=== PATIENT | female | born 1980 | race Caucasian/White ===

== ENCOUNTER 2020-05-09 18:20 | Inpatient (IN) | payer OTHER, SELFPAY ==
[~2020-05-09] VITALS: Ht 170.2 cm; Wt 62.6 kg
--- NOTE | 2020-05-09 18:20 | NUR ---
Patient BIBA BLS, transferred to bed 6. RN evaluating patient at bedside.
[2020-05-09 18:24] VITALS: BP 149/71
--- NOTE | 2020-05-09 18:30 | NUR ---
UPON FIRST ASSESSMENT PT IS UNCOOPERATIVE AND WONT ANSWER QUESTIONS. CONTINUES TO YELL. FAMILY CALLED 911. HELLEN FROM HOME C/O OVERDOSE ON ATIVAN AND IBUPROFEN-UNKNOWN DOSAGES, AND DRINKING WINE-UNKNOWN AMOUNT. PT ON 5150 HOLD UPON ARRIVAL TO ER, TOLD POLICE THAT SHE "WANTED TO END IT ALL". PT WONT ADMIT TO SUICIDAL ATTEMPT. PMH- UNKNOWN [address] PT IN GOWN AND BELONGINGS REMOVED. 1-1 SITTER
--- NOTE | 2020-05-09 18:52 | NUR ---
PERFORMED EKG WITH ABBY VARMA BEDSIDE
--- NOTE | 2020-05-09 18:57 | NUR ---
SPOKE WITH EDGAR FROM POSION CONTROL STATES IF OVERDOSE IS WITHIN THE HOUR RECOMENDS ADMINISTERING 50G CHARCOAL, IF OVERDOSE IS LONGER THAN 1 HOUR THEN OBSERVE FOR VS AND MENTAL CHANES. RECOMMENDS DRAWING LABS, LIVER PANEL, AND BLOOD ALCOHOL. CAN GIVE IV FLUIDS. RECOMMENDS RE-DRAWING LABS AT 4 HRS AND OBSERVING FOR A TOTAL TIME OF 6 HRS.
[2020-05-09] MEDS ORDERED: NACL 0.9% 1,000 ML IV ONE (19:00)
[2020-05-09] MEDS ORDERED: HALOPERIDOL IM 5 MG/ML VIAL ONE (19:16)
[2020-05-09] MEDS ORDERED: HALOPERIDOL IM 5 MG/ML VIAL IM ONE (19:20)
--- NOTE | 2020-05-09 19:23 | NUR ---
RECEIVED REPORT FROM ABBY VAMRA
--- NOTE | 2020-05-09 19:32 | NUR ---
ATTEMPTED TO CALL PT'S PER PT'S REQUEST. [phone] SHARATH, NO ANSWER, LEFT MESSAGE FORM HIM TO CALL BACK.
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
--- NOTE | 2020-05-09 19:45 | NUR ---
PT REMAINS ON SUICIDE PRECAUTIONS AND CHECKS Q 15 MINUTES
[2020-05-09 19:47] LABS: BASOPHILS # (AUTO) 0.1 K/uL (0.00-0.22); BASOPHILS % (AUTO) 1.1 % (0.0-2.0); EOSINOPHILS % (AUTO) 0.2 % (0.0-4.0); HEMATOCRIT 45.7 % (36-48); HEMOGLOBIN 15.3 g/dL (12.0-16.0); LYMPHOCYTES # (AUTO) 3.5 K/uL (2.5-16.5); LYMPHOCYTES % (AUTO) 45.1 % (20.5-51.1); MEAN CORPUSCULAR HEMOGLOBIN 33 pg (27-31); MEAN CORPUSCULAR HGB CONC 34 g/dL (33-37); MEAN CORPUSCULAR VOLUME 97.1 fL (80-94); MONOCYTES # (AUTO) 0.7 K/uL (0.8-1.0); MONOCYTES % (AUTO) 8.6 % (1.7-9.3); NEUTROPHILS # (AUTO) 3.5 K/uL (1.8-7.7); PLATELET COUNT (AUTO) 259 K/uL (140-450); RED BLOOD CELL COUNT(AUTO) 4.71 MIL/uL (4.20-5.40); WHITE BLOOD COUNT (AUTO) 7.8 K/uL (4.8-10.8)
[2020-05-09 20:07] LABS: BARBITURATE, URINE NEGATIVE ng/ml (NEG <=200); BENZODIAZEPINE, URINE POSITIVE ng/mL (NEG <=200); CANNABINOID, URINE NEGATIVE ng/mL (NEG <=50); COCAINE, URINE NEGATIVE ng/mL (NEG <=300); OPIATE, URINE NEGATIVE ng/mL (NEG <=2000); PHENCYCLIDINE SCREEN,URINE NEGATIVE ng/mL (NEG <=25)
--- NOTE | 2020-05-09 20:10 | NUR ---
PATIENT'S GOWN AND BED LINENS CHANGED, DUE TO BED BEING WET FROM THE IV DRAINING AFTER SHE PULLED OUT THE IV FOR THE SECOND TIME.
--- NOTE | 2020-05-09 20:19 | NUR ---
PT REQUESTING ATIVAN, ADVISED PT SHE WAS JUST MEDICATED WITH HALDOL AND UNABLE TO GIVEN ATIVAN AT THIS. REPOSITIONED FOR COMFORT.
[2020-05-09 20:20] LABS: ANION GAP 23.3 (8-16); CARBON DIOXIDE 17.8 mmol/L (21-32); CHLORIDE 104 mmol/L (98-107); CREATININE 0.6 mg/dL (0.6-1.3); GFR ARICAN-AMERICAN 141 mL/min (>90); GLUCOSE 127 mg/dL (74-106); POTASSIUM 3.1 mmol/L (3.5-5.1); SODIUM SERUM 142 mmol/L (136-145); TOTAL BILIRUBIN 0.6 mg/dL (0.0-1.0); UREA NITROGEN, BLOOD 8 mg/dL (7-18)
[2020-05-09 20:21] LABS: ALBUMIN 4.2 g/dL (3.4-5.0); ASPARTATE AMINOTRANSFERASE 38 U/L (15-37); SALICYLATE < 2.8 mg/dL (2.8-20.0)
[2020-05-09 20:23] LABS: ACETAMINOPHEN 45.7 ug/ml (10-30)
--- NOTE | 2020-05-09 21:07 | NUR ---
PT SLEEPING AT THIS TIME, RESPIRATIONS REGULAR, EVEN, AND UNLABORED. PT CONTINUES TO BE MONITORED Q 15 MINS
--- NOTE | 2020-05-09 22:26 | NUR ---
SPOKE TO HARMONY AT POISON CONTROL FOR UPDATE OF PT'S LABS AND V/S. WAS ADVISED OF ELEVATED ACETAMEN. LEVEL. WAS TOLD PT NEED TO START ATETADOTE LOADING DOSE 150MG/KG FOR 1 HR, 50MG/KG X 4 HRS, AND 100MG/KG X 16 HRS. ER AWARE. GAVE MD PHONE NUMBER TO POISON CONTROL.
[2020-05-09] MEDS ORDERED: ACETYLCYSTEINE IV ONE ×3 (22:30)
[2020-05-09] MEDS ORDERED: DEXTROSE 5% IV ONE ×3 (22:30)
--- NOTE | 2020-05-09 22:49 | NUR ---
PT SPEAKING TO PSYCHIATRIST VIA TELEMEDICINE
--- NOTE | 2020-05-09 22:59 | NUR ---
PT REQUESTING SANDWICH AND DRINK.
[2020-05-09] MEDS ORDERED: POTASSIUM CHLORIDE 10 MEQ TABER PO ONE (23:05)
[2020-05-09] MEDS ORDERED: ACETYLCYSTEINE IV 6000 MG/30 ML VIAL IV ONE (23:48)
--- NOTE | 2020-05-09 23:50 | NUR ---
PT REMAINS ON 5150 FOR DTS AFTER SPEAKING WITH PSYCHIATRIST ON TELEPSYCH. PT ADVISED THAT SHE REMAINS ON A 5150 WHICH IS A HOLD X 72 HRS.
[2020-05-10] MEDS ORDERED: LORazepam 2 MG/ML VIAL IVP ONE (00:20)
--- NOTE | 2020-05-10 00:40 | NUR ---
PT STATES "I WANT TO KNOW WHAT THE FUCK IS GOING ON, IF I'M ON A HOLD JUST TELL THE DOCTOR TO COME AND TELL ME THAT, OR IS HE TOO FUCKING BUSY WITH ALL THESE PATIENTS THAT HE DOESNT HAVE" REMINDED PATIENT THAT LANGUAGE IS UNACCEPTABLE AND WILL NOT BE TOLERATED. ED ATTENDING MADE AWARE.
--- NOTE | 2020-05-10 00:53 | NUR ---
COVERING FOR PRIMARY NURSE WHILE ON LUNCH BREAK . PT PROVIDED WATER FOR COMFORT. PT
--- NOTE | 2020-05-10 01:21 | NUR ---
PT AMBULATED TO RESTROOM W/ STEADY GAIT. BATHROOM DOOR UNLOCKED AND SITTER OUTSIDE DOOR.
[2020-05-10] MEDS ORDERED: ACETYLCYSTEINE IV 6000 MG/30 ML VIAL IV ONE (01:50)
--- NOTE | 2020-05-10 02:04 | NUR ---
PT REQESTING MORE ATIVAN, 2MG. ADVISED SHE WILL NOT BE RECEIVING ANY MORE MEDS AT THIS TIME. PT REQUESTING HER PURSE, TOLD HER SHE IS NOT ALLOWED TO HAVE HER BELONGINGS WHILE BEING ON A HOLD. PT REQUESTING TO SPEAK WITH MD. I HAVE EXPLAINED TO PT NUMEROUS TIMES THAT SHE IS ON A 5150 HOLD WHICH MEANS SHE WILL BE HELD AT THE HOSPITAL OR TRANSFERRED TO A PSYCH FACILITY ONCE HER MEDS FINISH INFUSING FOR HER ELEVATED TYLENOL LEVELS. PT VERBALIZED UNDERSTANDING BUT CONTINUES TO STES SHE IS ANXIOUS AND UNABLE TO REST OR SLEEP. PT REMAINS ON BEDSIDE MONITOR.
--- NOTE | 2020-05-10 02:49 | NUR ---
PT CONTINUES TO REMAIN ON 15 MIN CHECKS AND BEDSIDE MONITOR
--- NOTE | 2020-05-10 04:14 | NUR ---
PT UP AND AMBULATED TO RESTROOM WITH STEADY GAIT. PT REQUESTED ANOTHER SANDWICH AND JUICES. Q 15 MIN CHECKS CONTINUE.
--- NOTE | 2020-05-10 04:37 | NUR ---
PT IS CONTINUOUSLY DISCONNECTING AND PULLING HER LEADS, WILL NOT KEEP HER ARM STRAIGHT FOR THE IV. KEEPS INSISTING TO BE TRANSFERRED TO [facility] OR [facility]. ADVISED AGAIN SHE IS ON A 5150 AND THEY DO NOT HAVE A PSYCH UNIT AND WILL NOT ACCEPT HER. PT STILL ASKING TO SPEAK TO ER MD TO MAKE ARRANGEMENTS TO TRANSFER HER TO EITHER FACILITY. REPOSITIONED IN BED REATTACHED LEADS AND B/P CUFF AGAIN AND ASKED PT TO KEEP ARM STRAIGHT
--- NOTE | 2020-05-10 05:09 | NUR ---
NEW IV STARTED DUE TO PT CONTINUOUSLY BENDING HER ARM AND IMPEDING IV FLOW. NEW IV SITE TO RIGHT FOREARM. PT CONTINUES ASKING FOR ATIVAN, ADVISED ER SAID NO.
--- NOTE | 2020-05-10 05:20 | NUR ---
PT UP TO THE RESTROOM, AMBULATED WITH STEADY GAIT
--- NOTE | 2020-05-10 05:40 | NUR ---
PT UP TO RESTROOM AGAIN. PT C/O DIARRHEA, AWARE, NO NEW ORDERS AT THIS TIME.
[2020-05-10] MEDS ORDERED: LORA-476 PO (05:55)
[2020-05-10] MEDS ORDERED: TOPI50TA PO (05:55)
[2020-05-10] MEDS ORDERED: TRAZ150T36 PO (05:55)
--- NOTE | 2020-05-10 06:50 | NUR ---
PT UP TO RESTROOM AGAIN, STEADY GAIT.
--- NOTE | 2020-05-10 06:58 | NUR ---
PT CONCERNED SHE WILL NOT BE GETTING HER REGULARLY SCHEDULED MEDS TODAY. LET MD BHATTI KNOW PT TAKES TOPOMAX 50 MG QAM AND ATIVAN 2MG QAM AND NIGHT MEDS TRAZADONE 150MG QHS AND ATIVAN 2 MG QHS.
--- NOTE | 2020-05-10 07:20 | NUR ---
REPORT GIVEN TO PERRI VARMA
--- NOTE | 2020-05-10 07:28 | NUR ---
PT RESTING IN BED, SIDE RAIL X1
--- NOTE | 2020-05-10 07:43 | NUR ---
COVID SWAB DONE ; SENT TO LAB
[2020-05-10] MEDS ORDERED: ACETYLCYSTEINE IV SCH (09:00)
[2020-05-10] MEDS ORDERED: DEXTROSE 5% IV SCH (09:00)
--- NOTE | 2020-05-10 09:05 | NUR ---
PATIENT HAS BEEN SCREENED AND CATEGORIZED LOW NUTRITION RISK. PATIENT WILL BE SEEN WITHIN 7 DAYS OF ADMISSION. 05/16/[address]
[2020-05-10 09:35] VITALS: BP 155/95
--- NOTE | 2020-05-10 09:35 | NUR ---
Patient will be admitted to care of [facility]. Admited to [facility]. Will go to room 109A. Belongings list completed. Report to YAHAIRA VARMA.
[2020-05-10] MEDS ORDERED: HYDROcodone/APAP 5/325 MG 1 TAB TAB PO PRN (10:50)
[2020-05-10] MEDS ORDERED: SODIUM PHOSPHATE 118 ML ENEM RC PRN (10:50)
[2020-05-10] MEDS ORDERED: ZOLPIDEM 5 MG TAB PO PRN (10:50)
[2020-05-10] MEDS ORDERED: guaiFENesin DM 200/20 MG-10 ML 10 ML UDC PO PRN (10:50)
[2020-05-10] MEDS ORDERED: diphenhydrAMINE 50 MG/ML VIAL IVP PRN (10:50)
[2020-05-10] MEDS ORDERED: POTASSIUM CHLORIDE 10 MEQ TABER PO PRN (10:50)
[2020-05-10] MEDS ORDERED: CLONIDINE HYDROCHLORIDE 0.1 MG TAB PO PRN (10:50)
[2020-05-10] MEDS ORDERED: LORazepam 1 MG TAB PO PRN (10:50)
[2020-05-10] MEDS ORDERED: ACETAMINOPHEN 325 MG TAB PO PRN (10:50)
[2020-05-10] MEDS ORDERED: DOCUSATE SODIUM 250 MG GELCAP PO PRN (10:50)
[2020-05-10] MEDS ORDERED: ONDANSETRON 4 MG/2 ML VIAL IVP PRN (10:50)
[2020-05-10] MEDS ORDERED: ALBUTEROL 0.083% 2.5 MG/3 ML NEBU INH PRN (10:50)
[2020-05-10] MEDS ORDERED: ALUMINUM HYD/MAG/SIMETHICONE 30 ML UDC PO PRN (10:50)
[2020-05-10] MEDS ORDERED: bisacodyL 10 MG SUPP RC PRN (10:50)
[2020-05-10] MEDS ORDERED: MAG SULF 2000 MG/WATER PREMIX 50 ML IV PRN (10:50)
[2020-05-10] MEDS ORDERED: MORPHINE SULFATE 2 MG/ML SYR IVP PRN (10:50)
[2020-05-10] MEDS ORDERED: MAGNESIUM OXIDE 400 MG TAB PO PRN (10:50)
[2020-05-10] MEDS ORDERED: ACETAMINOPHEN 650 MG SUPP RC PRN (10:50)
[2020-05-10] MEDS ORDERED: IPRATROPIUM 0.02% 0.5 MG/2.5 ML NEBU INH PRN (10:50)
[2020-05-10] MEDS ORDERED: TOPIRAMATE 25 MG TAB PO SCH (10:58)
--- NOTE | 2020-05-10 11:25 | NUR ---
POISON CONTROL CALLED TO VERIFY LABS. PER POISON CONTROL, OBTAIN LABS 1 HOUR PRIOR TO ACETALCYSTEINE TODAY. SO LAB WILL BE TAKEN AT 2300 LATER TONIGHT. WILL ORDER LABS PER DR. FARRELL. WILL CONTINUE TO MONITOR.
--- NOTE | 2020-05-10 13:24 | NUR ---
MEDICAID BILLING CLERK NOTE: Patient's Orientation Unable To Assess Information Provided By PATIENT Comments MIKY MET PATIENT AT BEDSIDE TO VERIFY DEMOGRAPHICS. Suppository Molding Machine Operator, Realtionship and Phone Number SHARATH ROWLAND [phone] Healthcare Power of Quality Control Expert No Does Patient Have a POLST No Identifying Problems Mental Health Is A Social Work Consult Needed No Mandate Report Filed No Explanation Of Identifying Problems PATIENT IS A 40-YEAR-OLD FEMALE ADMITTED FOR 5150. PATIENT DENIES PMHX. SW MET WITH PATIENT TO DISCUSS HOW SHE WAS HOSPITALIZED. PATIENT STATED THAT SHE HAD TAKEN 11-12 TYLENOL PM WITH ALCOHOL AND OTHER MEDICATION. PATIENT STATED SHE TAKES TAPAMAX, ATIVAN, AND TRAZADONE. PATIENT REPORTS HAVING DIAGNOSIS OF PTSD, BIPOLAR DISORDER, PANIC DISORDER. PATIENT REPORTS DAILY ALCOHOL USE BUT DENIES SUBSTANCE ABUSE. PATIENT STATED THAT SHE WAS INTERESTED IN MENTAL HEALTH RESOURCES. MIKY PROVIDED MENTAL HEALTH RESOURCES AND SCHEDULED APPOINTMENT AT [facility] FOR 05/16/2020. Admitted From Home Pre-Admission Level Of Functioning Status Independent/Ambulatory Prior Resources/Services Used In Last 12 Months No Prior Resources Used Prior DME No Prior DME Used Living Situation Lives W/Significant Other House Patient Had Caregiver No Home Support No Caregiver Issues Financial Issues No Known Financial Issue Factors/Needs Psych Placement/Referral Explanation And Or Other Factors Affecting/Possible DC Needs PENDING PSYCHIATRIC CONSULT, PATIENT WILL BE DISCHARGED TO A PSYCHIATRIC FACILITY. Pt/Rep Participated In Discharge Plan Yes Patient/Family Agress With Discharge Plan Yes Discharge Plan Comments TENTATIVE DISCHARGE PLAN IS FOR PATIENT TO BE DISCHARGED TO PSYCHIATRIC FACILITY/ DC Plan Status Initiated
--- NOTE | 2020-05-10 14:28 | NUR ---
DC PLANNING: MIKY FAXED CLINICALS AND 5150 TO [facility] [phone]. Addendum: 05/11/20 at 4736 by Rickey HYLTON MIKY CONTACTED ART FROM [facility] [phone]. PER ART, PATIENT'S CLINICALS AND 5150 WAS NOT RECEIVED. MIKY RE-FAXED CLINICALS AND 5150 TO [phone]. MIKY FOLLOWED UP WITH ART TO SEE IF IT WAS RECEIVED. Addendum: 05/11/20 at 9713 by Rickey HYLTON MIKY WAS CONTACTED BY EBER FROM [facility]. EBER REQUESTED COVID TESTING RESULTS TO BE FAXED TO [phone]. MIKY FAXED COVID TEST AND WILL AWAIT TO HEAR FROM EBER. Addendum: 05/11/20 at 1329 by Rickey HYLTON EBER CONTACTED WITH ROOM NUMBER [id number] UNDER ACCEPTING PHYSICIAN DR. ORDONEZ. MIKY ARRANGED TRANSPORTATION WITH JOSUE FROM [facility] [phone] FOR 1330. KOJO VIGIL WAS NOTIFIED. Addendum: 05/11/20 at 1331 by Rickey HYLTON MIKY PROVIDED AUTH TO JOSUE FOR TRANSPORTATION FROM IE: [id number] Addendum: 05/11/20 at 1334 by Rickey Tabor SS EBER PROVIDED PHONE NUMBER [phone] FOR TRANSPORTATION. CORRECTION: TRANSPORTATION WILL BE FOR 1530 THROUGH [facility].
[2020-05-10] MEDS ORDERED: LORazepam 2 MG/ML VIAL IVP SCH (15:24)
[2020-05-10 16:00] VITALS: BP 154/92
--- NOTE | 2020-05-10 19:15 | NUR ---
TRANSFER OF CARE TO MALARIOLOGIST. NO SIGNS OF DISTRESS. VS STABLE
--- NOTE | 2020-05-10 19:16 | NUR ---
RECD. RESTING IN BED, AWAKE, A/OX4. RESPIRATION EVEN AND UNLABORED. IV OF ACETADONE 6,300 MG. IN D5 W INFUSING AT 64.46 ML/HR, RIGHT FOREARM G22. DENIES INTENTION OF HURTING SELF, ONLY FEELING VERY ANXIOUS. PLAN OF CARE FOR THE SHIFT DISCUSSED. VERBALIZED UNDERSTANDING. DENIES PAIN 0/10.
[2020-05-10 20:00] VITALS: BP 137/107
--- NOTE | 2020-05-10 20:15 | NUR ---
SPOKE WITH BY PHONE.
[2020-05-10] MEDS: LORazepam 2 MG/ML VIAL IM/IVP PRN (20:32)
--- NOTE | 2020-05-10 20:32 | NUR ---
ATIVAN 1 MG. IVP GIVEN BY NURSE COMPRESSOR STATION ENGINEER
--- NOTE | 2020-05-10 21:30 | NUR ---
SLEEPING COMFORTABLY IN BED.
--- NOTE | 2020-05-10 22:00 | NUR ---
Patient's Plan of Care was discussed and reviewed with ENTRY TABLE OPERATOR: DIDIER FORD
[2020-05-10 23:17] LABS: ALBUMIN 3.5 g/dL (3.4-5.0); ANION GAP 15.5 (8-16); ASPARTATE AMINOTRANSFERASE 54 U/L (15-37); CARBON DIOXIDE 21.1 mmol/L (21-32); CHLORIDE 102 mmol/L (98-107); CREATININE 0.8 mg/dL (0.6-1.3); GFR ARICAN-AMERICAN 101 mL/min (>90); GLUCOSE 118 mg/dL (74-106); POTASSIUM 3.6 mmol/L (3.5-5.1); SODIUM SERUM 135 mmol/L (136-145); TOTAL BILIRUBIN 0.8 mg/dL (0.0-1.0); UREA NITROGEN, BLOOD 7 mg/dL (7-18)
--- NOTE | 2020-05-10 23:30 | NUR ---
RECEIVED PT FROM AM SHIFT. PT SEEN AND ASSESSED. PT ON ROOM AIR WITH SPO2 OF 98%. PT IS IN NO APPARENT RESPIRATORY DISTRESS AT THIS TIME. PRN TX NOT INDICATED AT THIS TIME. WILL CONTINUE TO MONITOR PT.
--- NOTE | 2020-05-10 23:35 | NUR ---
AWAKE IN BED, INQUIRED WHEN IS HER NEXT ATIVAN DUE. NOT YET DUE, INSTEAD REQUESTED FOR PAIN MEDICATION FOR HER BACK PAIN.
[2020-05-10] MEDS: HYDROcodone/APAP 5/325 MG 1 TAB TAB PO PRN (23:39)
[2020-05-11] VITALS: BP 154/88
--- NOTE | 2020-05-11 | NUR ---
IV INFILTRATED, NEW IV LINE INSERTED BY KOJO CORRALES AT THE LEFT WRIST G24.
[2020-05-11 00:03] LABS: ACETAMINOPHEN < 0.5 ug/ml (10-30)
[2020-05-11] MEDS: LORazepam 2 MG/ML VIAL IM/IVP PRN ×3 (00:38→14:38)
--- NOTE | 2020-05-11 00:38 | NUR ---
WITH ANXIETY, MEDICATED WITH ATIVAN 1 MG IVP BY KOJO CORRALES.
--- NOTE | 2020-05-11 01:38 | NUR ---
NO ANXIETY NOTED, SLEEPING COMFORTABLY IN BED.
--- NOTE | 2020-05-11 03:30 | NUR ---
COMFORTABLE IN BED, SLEEPING ON HER RIGHT SIDE. 1:1 SITTER NEAR DOOR MONITORING PATIENT.
--- NOTE | 2020-05-11 05:50 | NUR ---
INFORMED POISON CONTROL STAFF GEREMIAS, PATIENT TYLENOL LEVEL - LESS 0.5, BUT AST INCREASED FROM 38 TO 54. ADVISED TO GIVE ANOTHER BAG OF ACETADOTE AT 64.469 ML/HR, TO BE COMPUTED SAME THE LAST BAG GIVEN, 100 MG/KG X 16 HOURS AND DO ANOTHER AST LEVEL TEST ONE HOUR BEFORE BAG FINISH INFUSING.
--- NOTE | 2020-05-11 06:40 | NUR ---
INFORMED DR. FARRELL REGARDING RECOMMENDATION OF POISON CONTROL TO GIVE ANOTHER BAG OF ACETADOTE BUT STATED SHE IS FINE.
--- NOTE | 2020-05-11 07:00 | NUR ---
CONDITION REMAIN STABLE. WILL ENDORSE TO AM SHIFT NURSE FOR CONTINUITY OF CARE.
--- NOTE | 2020-05-11 07:20 | NUR ---
RECEIVED REPORT FROM NIGHT NURSE FOR CONTINUITY OF CARE, PT IS STABLE, NO SIGNS OF DISTRESS NOTED, RESPIRATIONS ARE EVEN AND UNLABORED, 1:1 SITTER AT DOOR, PT HAS RIGHT FA 22G SALINE LOCK, ALL NEEDS MET, WILL CONTINUE TO MONITOR
[2020-05-11 08:00] VITALS: BP 140/87
[2020-05-11] MEDS: HYDROcodone/APAP 5/325 MG 1 TAB TAB PO PRN ×2 (08:19→12:51)
--- NOTE | 2020-05-11 08:25 | NUR ---
ADMINISTERED SCHEDULED MEDICATION AND NORCO FOR BACK PAIN OF 8/10, THROBBING, ACH, MEDICATION EDUCATION GIVEN, PT VERBALIZED UNDERSTANDING, PT TOLERATED MEDICATION WELL, ICE PACK GIVEN TO PT TO PUT ON LOWER BACK, 1:1 SITTER AT DOOR WATCHING PT, PT IS STABLE, NO SIGNS OF DISTRESS NOTED
--- NOTE | 2020-05-11 08:49 | NUR ---
SPOKE WITH DR. HERNÁNDEZ ON THE PHONE AND NOTIFIED WITH THE CONSULT, DOCTOR BETTY STATED HE WILL COME TO SEE PT TODAY. GABY ASSIGNED MADE AWARE.
[2020-05-11] MEDS ORDERED: TOPIRAMATE 25 MG TAB PO SCH (09:00)
--- NOTE | 2020-05-11 09:10 | NUR ---
[facility] has received packet. Will start looking for placement.
--- NOTE | 2020-05-11 09:23 | NUR ---
Packet referred to the following facilities: [facility]
--- NOTE | 2020-05-11 10:19 | NUR ---
ADMINISTERED ATIVAN FOR ANXIETY, MEDICATION EDUCATION GIVEN, PT VERBALIZED UNDERSTANDING, PT TOLERATED WELL, PT IS STABLE, 1:1 SITTER AT DOOR
--- NOTE | 2020-05-11 12:53 | NUR ---
ADMINISTERED NORCO FOR BACK PAIN OF 05/16, MEDICATION EDUCATION GIVEN, PT VERBALIZED UNDERSTANDING, PT TOLERATED WELL, ICE PACK PROVIDED, 1:1 SITTER OUTSIDE THE ROOM
--- NOTE | 2020-05-11 14:41 | NUR ---
ADMINISTERED ATIVAN FOR ANXIETY, MEDICATION EDUCATION GIVEN, PT TOLERATED WELL, PT IS STABLE, 1:1 SITTER BY ROOM
--- NOTE | 2020-05-11 15:00 | NUR ---
CALLED [facility] AND GAVE REPORT TO RANDY THAT PT WOULD BE TRANSFERRED TO [facility], INFORMED NURSE OF PT'S MEDICATION AND WHEN 5150 END, FAMILY AWARE PT WILL BE TRANSFERRING.
--- NOTE | 2020-05-11 15:06 | NUR ---
DC PLANNING: PT IS REQUESTING TO TALK TO CM , I TALKED TO PATIENT AT THE BED SIDE VERBALIZING HER CONCERN AND ISSUES, TO GO FAR AWAY AND ALSO WORRIED ABOUT HER WORK. I EXPLAINED THE NEED TO BE IN THE PSYCH UNIT FOR TREATMENT WHICH IS RECOMMENDED BY THE PSYCHIATRIST AND FOR HER WORK ABLE TO GET A PAPERWORK FOR THE HOSPITAL STAY. PT VERBALIZED UNDERSTANDING AND AGREED TO GO TO PSYCH FACILITY. CM TO FOLLOW
--- NOTE | 2020-05-11 16:05 | NUR ---
PT TRANSFERRED TO [facility] IN [place], IV REMOVED, PT TRANSFERED BY [facility], PT IS STABLE,
== END 2020-05-11 16:10 | DRG 812 ==
LOC: MED 18:20 → MTU 05-10 08:26 → EDBEDREQ 05-10 08:43
PROVIDERS: ADMIT Internal Medicine Pulmonary Disease; ATTEND Internal Medicine Pulmonary Disease
DX: T45.0X2A Poisoning by antiallergic and antiemetic drugs, intentional self-harm, initial encounter (principal); T42.4X2A Poisoning by benzodiazepines, intentional self-harm, initial encounter; T39.1X2A Poisoning by 4-Aminophenol derivatives, intentional self-harm, initial encounter; Y92.89 Other specified places as the place of occurrence of the external cause; F32.9 Major depressive disorder, single episode, unspecified; F41.9 Anxiety disorder, unspecified; Z20.828 Contact with and (suspected) exposure to other viral communicable diseases; T51.0X2A Toxic effect of ethanol, intentional self-harm, initial encounter; G93.41 Metabolic encephalopathy
CPT/HCPCS: 36415; 80053; 80305; 81025; 85025; 87081; 93005; 96361; 96365; 96366; 96375; 99285; G0480; G0482; J0132; J1630; J2060; J7060; U0003-CS

== ENCOUNTER 2021-02-11 13:18 | Emergency (ER) | payer OTHER, SELFPAY ==
[~2021-02-11] VITALS: Ht 175.3 cm; Wt 56.7 kg
[2021-02-11 13:18] VITALS: BP 141/100
[~2021-02-11 13:18] MED LIST: LORA-476 PO; TOPI50TA PO; TRAZ150T36 PO
--- NOTE | 2021-02-11 13:18 | NUR ---
Patient BIBA BLS, transferred to bed 7. RN evaluating the patient at bedside.
--- NOTE | 2021-02-11 14:44 | NUR ---
Call 211 pt requesting crisis intervention help, leave message, instructed pt to ff up and to call back 211 again.
[2021-02-11 16:18] VITALS: BP 141/100
== END 2021-02-11 16:00 | disposition home or self-care (01) ==
LOC: MED 13:18
DX: F10.129 Alcohol abuse with intoxication, unspecified (principal); Y90.9 Presence of alcohol in blood, level not specified
CPT/HCPCS: 81025; 99283

== ENCOUNTER 2021-02-28 16:20 | Emergency (ER) | payer OTHER, SELFPAY ==
[~2021-02-28] VITALS: Ht 175.3 cm; Wt 56.7 kg
--- NOTE | 2021-02-28 16:22 | NUR ---
Patient BIBA to bed 7 at this time.
[2021-02-28 16:27] VITALS: BP 152/103
--- NOTE | 2021-02-28 16:36 | NUR ---
DR SONG AT BEDSIDE EXAMINING PATIENT
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
[2021-02-28 17:09] VITALS: BP 152/103
--- NOTE | 2021-02-28 17:10 | NUR ---
Patient discharged with v/s stable. Written and verbal after care instructions given and explained. Patient verbalized understanding. Ambulatory with steady gait. All questions addressed prior to discharge. Advised to follow up with PMD.
== END 2021-02-28 17:10 | disposition home or self-care (01) ==
LOC: MED 16:20
DX: F10.10 Alcohol abuse, uncomplicated (principal); F32.9 Major depressive disorder, single episode, unspecified; F17.200 Nicotine dependence, unspecified, uncomplicated; Z79.899 Other long term (current) drug therapy; Z98.890 Other specified postprocedural states; Z71.6 Tobacco abuse counseling
CPT/HCPCS: 99283